=== PATIENT | male | born 1955 | race Caucasian/White ===

== ENCOUNTER 2017-02-06 19:13 | Inpatient (IN) | payer BC ==
[~2017-02-06] VITALS: Ht 180.3 cm; Wt 77.1 kg
--- NOTE | ~2017-02-06 | CNG ---
[facility] [place] [address] CYTO-NONGYN REPORT PROCEDURE Name: VAN MEDINA Room #: 423-1 DIS IN M.R.#: [id number] Admission: 02/06/17 Date of : 55 Discharge: 02/09/17 Report #: [id number] Path Case #: [id number] CYTOPATHOLOGY REPORT COLLECTION DATE: 02/09/2017 RECEIVED DATE: 02/09/2017 SUBMITTING PHYS: Dr. Oswald Devine OTHER PHYS: Dr. Norm Zhang CLINICAL HISTORY: Urinary Retention, Hematuria, Bladder spasms UTI; See also [id number] SPECIMEN(S) RECEIVED: A.Washing, Bladder * * * * * * * * * * * * FINAL DIAGNOSIS: A. Washing, Bladder: - No malignant cells identified. Reactive urothelial cells, red blood cells and inflammation identified. PATHOLOGIST: Jase Yi M.D. REPORT ELECTRONICALLY SIGNED BY: Jase Yi M.D. DATE/TIME: 02/12/2017 12:36 * * * * * * * * * * * * GROSS PATHOLOGY: A. Washing, Bladder: The specimen is submitted unfixed, labeled "Van Medina". Received by the Cytology Department is 95 mL of red fluid. One ThinPrep slide was prepared. (mm 02.09.2017) RUFFLING MACHINE OPERATOR(S): PRABHAKAR Ling([facility]) INITIAL CPT CODE(S): A; 14692 Professional services performed by [facility] at [facility] [address], [place] [address] Technical services performed by [facility] at [address] [place] [address]., [address], [place] [address]. [facility] [address] [place] [address], [facility] [address] [place] [address] PHONE: [phone] [facility] [address] [place] [address] CYTO-NONGYN REPORT PROCEDURE Name: VAN MEDINA Room #: 423-1 DIS IN M.R.#: [id number] Admission: 02/06/17 Date of : 55 Discharge: 02/09/17 Report #: [id number] Path Case #: [id number] DIRECTOR: Steven Hines M.D. * * * END OF REPORT * * *
--- NOTE | ~2017-02-06 | HC ---
[facility] [place] [address] CONSULTATION Name: GABICAITLYN VINES Room #: 407-P [facility] IN M.R.#: [id number] Admission: 02/06/17 Attend Phys: Oswald Devine DO Discharge: Date of : 55 Report #: [id number] THIS REPORT FOR: //name// CC: Norm Devine DATE OF SERVICE: 02/07/2017 REASON FOR CONSULTATION: Evaluate urinary tract infection, hematuria and C. difficile colitis. HISTORY OF PRESENT ILLNESS: The patient is a 61-year-old with rectal adenocarcinoma who has recently completed a course of chemotherapy and radiation in preparation for his tumor resection. 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 He does have underlying atrial fibrillation, history of DVT and PE and he has been anticoagulated on Coumadin. Last month, he was treated for urinary retention and required self-catheterization. He subsequently developed gross hematuria about 3 weeks ago. This was treated at [facility]. At that time, he was also diagnosed with C. difficile colitis. He was later dismissed from that hospitalization only to return again on 01/30/2017 with fever, chills, sweats, sepsis, outlet obstruction thought related to blood clots and again was diagnosed with C. difficile colitis. CT scan at that time showed evidence of distal proctocolitis. In retrospect hard to know how of much of this is radiation induced and how much of this is due to C. difficile. The remainder of his colon was unremarkable. He did grow acinetobacter from his urine culture, which was sensitive to quinolones. He was dismissed on ciprofloxacin, oral vancomycin and metronidazole. Subsequently, he returns now again with gross hematuria and has had a 3-way catheter placed. No fever, chills or sweats. No nausea or vomiting. He has had a soft stool with no mucus or blood reported. He has had no rashes or decubiti. REVIEW OF SYSTEMS: Otherwise, unremarkable. PAST MEDICAL HISTORY: Congestive heart failure, atrial fibrillation, [place], borderline diabetic, DVT, pulmonary embolus, urinary outlet obstruction, C. difficile colitis. ALLERGIES: None. MEDICATIONS: As noted on his MAR including the Coumadin when he first came in along with oral vancomycin, ciprofloxacin and metronidazole. These have been continued. PHYSICAL EXAMINATION: [address] [address] CONSULTATION Name: GABICAITLYN JASMYN Room #: [facility] IN M.R.#: [id number] Admission: 02/06/17 Attend Phys: Oswald Devine DO Discharge: Date of : 55 Report #: [id number] VITAL SIGNS: Afebrile, hemodynamically stable. GENERAL: He is alert and cooperative and pleasant, in no acute distress. HEENT: Unremarkable. CHEST: Clear. HEART: Regular, without murmur. ABDOMEN: Soft and nontender. No hepatosplenomegaly or mass. He had a 3-way catheter with grossly bloody urine. EXTREMITIES: Unremarkable. ANAL EXAMINATION: Not performed. LABORATORY STUDIES: Sodium 138, potassium 4.4, bicarbonate 17, creatinine 1.6, lactate 2. INR 1.6, hemoglobin 9.6, WBC 7.6, platelet count 254,000. Differential unremarkable. Urinalysis, many rbc's, rare WBCs, few bacteria. Urine culture, no growth to date. 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 C. difficile colitis versus radiation proctitis and tumor with C. difficile associated diarrhea. I suspect the latter in this situation. I would recommend discontinuation of the ciprofloxacin. His urine culture now is negative with a fairly unremarkable urinalysis. I will continue enteral vancomycin for the next several days until I get a better sense of his stool output. <ELECTRONICALLY SIGNED> By: Sohail Deras MD 02/08/17 1008 1221 0004 Sohail Deras MD /nt
--- NOTE | ~2017-02-06 | S ---
[facility] [place] [address] SURGICAL PATH RPT PROCEDURE Name: VAN MEDINA Room #: 423-1 DIS IN M.R.#: [id number] Admission: 02/06/17 Date of : 55 Discharge: 02/09/17 Report #: [id number] Path Case #: [id number] PATHOLOGY REPORT COLLECTION DATE: 02/08/2017 RECEIVED DATE: 02/09/2017 SUBMITTING PHYS: Dr. Mesfin Griffin OTHER PHYS: Dr. Norm Devine SPECIMEN(S) RECEIVED: A.Posterior bladder wall biopsy * * * * * * * * * * * * FINAL DIAGNOSIS: Urinary bladder, posterior wall, biopsy: - Partially denuded transitional epithelium without evidence of malignancy. - Submucosal congestion with diluted blood vessels. (ODALYS:florentino; d/t: 02/12/2017) PATHOLOGIST: Jase Yi M.D. REPORT ELECTRONICALLY SIGNED BY: Jase Yi M.D. DATE/TIME: 02/12/2017 13:50 * * * * * * * * * * * * GROSS PATHOLOGY: Received in formalin labeled "Van Medina, posterior bladder wall biopsy," are 2 segments of dark brown soft tissue measuring 0.3 x 0.3 x 0.2 cm in aggregate dimensions and measuring 0.3 cm each in maximum dimension. The specimen is submitted entirely in cassette A1. (KAH; 02/09/2017) CLINICAL HISTORY: Clot INITIAL CPT CODE(S): A; 15834 Professional services performed by [facility] at [facility] [address] [place] [address] Technical services performed by [facility] at [address] [place] [address]. [facility] [address] [place] [address] SURGICAL PATH RPT PROCEDURE Name: VAN MEDINA Room #: 423-1 DIS IN M.R.#: [id number] Admission: 02/06/17 Date of : 55 Discharge: 02/09/17 Report #: [id number] Path Case #: [id number] [facility] [address] [address] PHONE: [phone] DIRECTOR: Steven Hines M.D. * * * END OF REPORT * * *
--- NOTE | ~2017-02-06 | O ---
[facility] [place] [address] OPERATIVE REPORT Name: CAITLYN ASHLEY Room #: 407-P [facility] IN M.R.#: [id number] Admission: 02/06/17 Attend Phys: Oswald Devine DO Discharge: Date of : 55 Report #: [id number] THIS REPORT FOR: //name// CC: Norm Devine DATE OF SERVICE: 02/08/2017 PREOPERATIVE DIAGNOSES: Gross hematuria, urinary retention. POSTOPERATIVE DIAGNOSIS: Gross hematuria, urinary retention. PROCEDURE: Cystoscopy, clot evacuation, bladder biopsy, fulguration of bleeding prostatic vessels, Pickett catheter insertion. SURGEON: Mesfin Griffin MD LITERARY WRITER: None. ANESTHESIA: General with LMA. ESTIMATED BLOOD LOSS: Minimal. FLUIDS: See anesthesia flow sheet. SPECIMEN: Posterior wall bladder biopsy for permanent bladder wash for cytology. DRAINS: A 24-Malian 3-way Pickett with CBI. COMPLICATIONS: None. INDICATIONS: A 61-year-old gentleman with history of radiation and chemotherapy for rectal cancer on anticoagulation for history of AFib, DVT and pulmonary embolus. He had been seen by us previously for urinary retention, had been started on self-cath a few weeks ago. He was admitted 2 days ago for gross hematuria and urinary retention due to clots. Large 3-way Pickett catheter was placed. Some clot was irrigated free, but the patient had recurrent clot retention. Cystogram performed yesterday demonstrated multiple filling defects in the bladder, 2-3 cm in size consistent with clot. We discussed with the patient need for cystoscopy, clot evacuation, possible biopsies depending on what we found. Risks, benefits, alternatives discussed at length. Risks including bleeding, infection, bladder perforation, continued hematuria, need for catheterization, need for subsequent procedures as well as urethral stricture. The patient acknowledged that he understood these risks. He has [facility] [address] [place] [address] OPERATIVE REPORT Name: CAITLYN ASHLEY Room #: 407-P [facility] IN M.R.#: [id number] Admission: 02/06/17 Attend Phys: Oswald Devine DO Discharge: Date of : 55 Report #: [id number] pertinent questions, which were answered. He ultimately elected to proceed. PROCEDURE AND FINDINGS: The patient was identified in the preoperative holding area. He was marked and consented, transported to the cystoscopy suite where a general anesthetic was administered. He was positioned in the dorsal lithotomy position with all appropriate pressure points padded. He was prepped and draped in typical sterile fashion. A timeout was performed confirming correct patient and procedure. We began by inserting the rigid Olympus 22-Malian cystoscope through the urethra into the bladder. Urethra showed multiple areas of what appeared to be catheter trauma. The mucosa was largely intact, though prostate was notable for severe hyperplasia, mostly from lateral lobes, visual obstruction, minimal median lobe. Bladder had multiple large clots and was unable to visualize much of the bladder upon first entering. Using Randy syringe, bladder was irrigated, clear of clot, probably approximately 60 mL total of clot. The bladder was then clear enough for me to fully examine it. It was trabeculated with small cellules. Bilateral ureteral orifices were orthotopic in position. There were some areas of mild erythema and edema diffusely, but no obvious tumors or other lesions. I biopsied chain sales representative area posteriorly with a cold cup biopsy. This was sent for permanent pathology. This area was fulgurated with the Bugbee. There was no other obvious source of bleeding within the bladder. I did find some bleeding vessels on the left lateral lobe of the prostate at the level of the bladder neck. These were also fulgurated with the Bugbee electrode. Following this, urine was light pink color. No further clots were appreciated. Scope was removed. A 24-Malian 3-way Pickett catheter was reinserted through the urethra and into the bladder. Balloon was inflated with 30 mL of sterile water. Catheter irrigated well, started him on some gentle continuous bladder irrigation. Given findings, I put him back on Flomax, also started him on finasteride in an attempt to prevent future prostatic bleeding, likely attempt a voiding trial in the subsequent 24-48 hours. By: 1230 1249 Mesfin Griffin MD /nt
[~2017-02-06 19:13] MED LIST: ACETAMINOPHEN325 M1 PO; ADULT LOW DOSE81 MG PO; CARVEDILOL12.5 MG PO; COUMADIN 10MG T10 M1 PO; COUMADIN 5 MG TA5 M1 PO; COZAAR 50 MG TA50 M2 PO; DIABETA 5MG TABL5 MG PO; ENOXAPARIN100 MG/11 SUBQ; GLYBURIDE 2.52.5 M1 PO; LISINOPRIL20 MG PO; METFORMIN HCL500 MG PO; NOHOMEMEDICATIONS; SPIRONOLACTONE25 M3 PO
[2017-02-06 19:14] VITALS: BP 127/85
[2017-02-06] MEDS ORDERED: LOPERAMIDE 2 MG2 M1 PO (19:45)
[2017-02-06 19:46] LABS: URINE BILIRUBIN NEGATIVE (Negative); URINE BLOOD 3+ (Negative); URINE COLOR RED; URINE GLUCOSE-RANDOM* 1+ (Negative); URINE KETONES TRACE (Negative); URINE NITRITE POSITIVE (Negative); URINE PROTEIN (DIPSTICK) 3+ (Negative)
[2017-02-06] MEDS ORDERED: COMPAZINE10 M2 PO (19:46)
[2017-02-06] MEDS ORDERED: SILVADENE20 GM TP (19:47)
[2017-02-06] MEDS ORDERED: VANCOCIN 125 M125 M1 PO (19:48)
[2017-02-06 19:52] LABS: BACTERIA 1-9 Few /HPF (None Seen); CASTS None Seen /LPF (None Seen); CRYSTALS None Seen /LPF (None Seen); SQUAMOUS None Seen /LPF (0-3); URINE RBC >20 Many /HPF (0-2); URINE WBC 0-5 Rare /HPF (0-5)
[2017-02-06 19:55] LABS: HEMATOCRIT 32.9 % (42.0-52.0); MANUAL DIFF YES; MCH 30.1 pg (26.0-34.0); MCHC 33.4 g/dL (28.0-37.0); MCV 89.9 fL (80.0-100.0); PLATELET COUNT 262 thou/uL (150-400); RBC 3.66 mil/uL (4.50-6.00); RDW 22.1 % (10.5-14.5); WBC 9.3 thou/uL (4.0-11.0)
[2017-02-06 20:00] LABS: CALCIUM 8.3 mg/dL (8.5-10.1); CREATININE 1.7 mg/dL (0.7-1.3); POTASSIUM 4.2 mmol/L (3.5-5.1)
[2017-02-06 20:17] LABS: APTT 34.4 Seconds (24.5-32.8); INR 1.8; PROTIME 18.2 Seconds (9.3-11.4)
[2017-02-06 20:20] LABS: ABSOLUTE NEUTROPHILS 6.1 thou/uL (1.4-8.2); ANISOCYTOSIS 1+; ATYPICAL LYMPHS 1 %; TOTAL CELL COUNT 100
[2017-02-06 20:21] LABS: POLYCHROMASIA OCCASIONAL
[2017-02-06 21:40] VITALS: BP 101/70
[2017-02-06 22:00] VITALS: BP 86/63
[2017-02-07 04:00] VITALS: BP 145/97
[2017-02-07 04:08] LABS: HEMATOCRIT 28.3 % (42.0-52.0); HEMOGLOBIN 9.6 gm/dL (14.0-18.0); MCH 30.3 pg (26.0-34.0); MCV 89.1 fL (80.0-100.0); RBC 3.18 mil/uL (4.50-6.00); RDW 21.9 % (10.5-14.5); WBC 7.6 thou/uL (4.0-11.0)
[2017-02-07 04:17] LABS: CREATININE 1.6 mg/dL (0.7-1.3); POTASSIUM 4.4 mmol/L (3.5-5.1)
[2017-02-07 04:20] LABS: INR 1.6; PROTIME 16.5 Seconds (9.3-11.4)
[2017-02-07 08:23] VITALS: BP 128/86
[2017-02-07 16:05] LABS: HEMATOCRIT 24.7 % (42.0-52.0); HEMOGLOBIN 8.4 gm/dL (14.0-18.0); MCH 30.3 pg (26.0-34.0); MCV 89.2 fL (80.0-100.0); RBC 2.76 mil/uL (4.50-6.00); RDW 22.1 % (10.5-14.5); WBC 7.1 thou/uL (4.0-11.0)
[2017-02-07 19:49] VITALS: BP 107/72
[2017-02-08 02:11] LABS: GLYCOHEMOGLOBIN (HGB A1C) 5.5 % (4.8-5.6)
[2017-02-08 05:18] VITALS: BP 131/77
[2017-02-08 06:05] LABS: HEMOGLOBIN 7.5 gm/dL (14.0-18.0); MCH 30.8 pg (26.0-34.0); MCHC 33.9 g/dL (28.0-37.0); MCV 90.8 fL (80.0-100.0); PLATELET COUNT 187 thou/uL (150-400); RBC 2.43 mil/uL (4.50-6.00); WBC 4.7 thou/uL (4.0-11.0)
[2017-02-08 06:09] LABS: MANUAL DIFF YES
[2017-02-08 06:17] LABS: CALCIUM 7.7 mg/dL (8.5-10.1); CREATININE 1.2 mg/dL (0.7-1.3); POTASSIUM 4.6 mmol/L (3.5-5.1)
[2017-02-08 08:00] VITALS: BP 120/80
[2017-02-08 08:45] LABS: ABSOLUTE NEUTROPHILS 2.5 thou/uL (1.4-8.2); ANISOCYTOSIS 3+; PLATELET ESTIMATE NORMAL; POLYCHROMASIA 1+; SCHISTOCYTES 1+; TOTAL CELL COUNT 100
[2017-02-08 10:52] VITALS: BP 122/71
[2017-02-08 16:00] VITALS: BP 119/77
[2017-02-08 20:00] VITALS: BP 107/71
[2017-02-09 05:01] VITALS: BP 110/68
[2017-02-09 08:42] VITALS: BP 118/75
[2017-02-09] MEDS ORDERED: HYDROCODONE-APA1 TA1 PO (09:52)
[2017-02-09 13:28] VITALS: BP 118/75
[2017-02-09] MEDS ORDERED: RAPAFLO8 MG PO (14:19)
[2017-02-09 14:22] VITALS: BP 118/75
== END 2017-02-09 15:06 | disposition home or self-care (01) | DRG 654 ==
LOC: ER 19:13 → EROBS 20:48 → 4N 20:48 → 4E 02-08 17:45
PROVIDERS: Emergency Medicine; Family Medicine; Nurse Practitioner Family; Physician Assistant
PROC: 0T7B8DZ Dilation of Bladder with Intraluminal Device, Via Natural or Artificial Opening Endoscopic (ICD-10-PCS; principal; 2017-02-08)
PROC: 0TCB8ZZ Extirpation of Matter from Bladder, Via Natural or Artificial Opening Endoscopic (ICD-10-PCS; principal; 2017-02-08)
PROC: 0TBB8ZX Excision of Bladder, Via Natural or Artificial Opening Endoscopic, Diagnostic (ICD-10-PCS; principal; 2017-02-08)
PROC: 0V508ZZ Destruction of Prostate, Via Natural or Artificial Opening Endoscopic (ICD-10-PCS; principal; 2017-02-08)
DX: N30.41 Irradiation cystitis with hematuria (principal); N17.9 Acute kidney failure, unspecified; A04.7 Enterocolitis due to Clostridium difficile; C20 Malignant neoplasm of rectum; I13.0 Hypertensive heart and chronic kidney disease with heart failure and stage 1 through stage 4 chronic kidney disease, or unspecified chronic kidney disease; R30.0 Dysuria; E11.65 Type 2 diabetes mellitus with hyperglycemia; E11.22 Type 2 diabetes mellitus with diabetic chronic kidney disease; I95.9 Hypotension, unspecified; N32.9 Bladder disorder, unspecified; N18.9 Chronic kidney disease, unspecified; I48.91 Unspecified atrial fibrillation; I50.9 Heart failure, unspecified; Z79.82 Long term (current) use of aspirin; Z79.899 Other long term (current) drug therapy; Z79.01 Long term (current) use of anticoagulants; Z86.718 Personal history of other venous thrombosis and embolism; Z86.711 Personal history of pulmonary embolism; I25.2 Old myocardial infarction; Z95.5 Presence of coronary angioplasty implant and graft; Z87.891 Personal history of nicotine dependence
CPT/HCPCS: 10084; 10091; 50010; 50101; 50455; 56815; 62110; 62900; 70005

== ENCOUNTER → 2018-02-04 | Outpatient (CLI) | payer OTHER ==
[~2018-02-04] MED LIST changes: +COMPAZINE10 M2 PO; +HYDROCODONE-APA1 TA1 PO; +LOPERAMIDE 2 MG2 M1 PO; +RAPAFLO8 MG PO; +SILVADENE20 GM TP; +VANCOCIN 125 M125 M1 PO
--- NOTE | ~2018-02-04 | 2DMMODE ---
[facility] [place] [address] 2 D/M-MODE ECHOCARDIOGRAM Name: CAITLYN ASHLEY Room #: REG CL [facility]#: [id number] Admission: 02/04/18 Attend Phys: Judson Walters MD Discharge: Date of : 55 Date of Service: 02/04/18 1009 Report #: [id number] THIS REPORT FOR: //name// ADDENDUM APPROVED REPORT Study performed: 02/04/2018 08:56:27 EXAM: Comprehensive 2D, Doppler, and color-flow Echocardiogram Patient Location: Echo lab Status: routine BSA: 1.96 HR: 60 bpm BP: 130/84 mmHg Other Information Study Quality: Technically Difficult/Adequate Indications Diabetes Atrial Fibrillation Hypertension/HDD 2D Dimensions RVDd: 28.73 mm LVEF(%): 29.09 (>50%) IVSd: 10.78 (7-11mm) LVOT Diam: 23.33 (18-24mm) LVDd: 50.71 mm PWd: 11.66 (7-11mm) LVDs: 43.77 (25-40mm) Aortic Root: 48.68 mm IVC: 7.00 mm Castaneda's LVEF: 29.09 % Volumes Left Atrial Volume (Systole) Single Plane 4CH: 37.74 mL Single Plane 2CH: 62.79 mL LA ESV Index: 30.00 mL/m2 Aortic Valve AoV Peak Mati.: 1.09 m/s AO Peak Gr.: 4.77 mmHg LVOT Max P.37 mmHg LVOT Max V: 0.77 m/s YOCASTA Vmax: 3.01 cm2 AI Vmax: 4.67 m/s AI Randolph: 2.11 m/s2 [facility] [address] [place] [address] 2 D/M-MODE ECHOCARDIOGRAM Name: CAITLYN ASHLEY Room #: REG [facility]#: [id number] Admission: 02/04/18 Attend Phys: Judson Walters MD Discharge: Date of : 55 Date of Service: 02/04/18 1009 Report #: [id number] AI PHT: 642.40 ms Mitral Valve E/A Ratio: 0.7 MV Decel. Time: 277.20 ms MV E Max Mati.: 0.51 m/s MV A Mati.: 0.74 m/s MV PHT: 80.39 ms IVRT: 155.71 ms Pulmonary Valve PV Peak Mati.: 0.98 m/s PV Peak Gr.: 3.85 mmHg Pulmonary Vein P Vein S: 0.58 m/s P Vein A: 0.90 m/s P Vein D: 0.22 m/s P Vein A Dur.: 162.6 msec P Vein S/D Ratio: 2.64 Tricuspid Valve RAP Estimate: 5.00 mmHg Left Ventricle The left ventricle is normal size. Hypokinesis of the mid to basal inferior and lateral lyn. Mild concentric left ventricular hypertrophy. Left ventricular systolic function is moderately decreased. LVEF is 40%. Mild diastolic dysfunction is present (impaired relaxation pattern). Right Ventricle The right ventricle is normal size. The right ventricular systolic function is normal. Atria The left atrium size is normal. The right atrium size is normal. Aortic Valve Mild aortic valve sclerosis. Mild to moderate aortic regurgitation. There is no aortic valvular stenosis. Mitral Valve The mitral valve is normal in structure. Mild mitral regurgitation. No evidence of mitral valve stenosis. Tricuspid Valve The tricuspid valve is normal in structure. Trace tricuspid [facility] [address] [place] [address] 2 D/M-MODE ECHOCARDIOGRAM Name: GABICAITLYN JASMYN Room #: REG CL [facility].#: [id number] Admission: 02/04/18 Attend Phys: Judson Walters MD Discharge: Date of : 55 Date of Service: 02/04/18 1009 Report #: [id number] regurgitation. Unable to assess PA pressure. Pulmonic Valve The pulmonary valve is normal in structure. There is no pulmonic valvular regurgitation. Great Vessels Aortic root is dilated at 4.9 cm. Ascending aorta is not well visualized. IVC is normal in size and collapses >50% with inspiration. Pericardium There is no pericardial effusion. <Conclusion> The left ventricle is normal size. Mild concentric left ventricular hypertrophy. Left ventricular systolic function is moderately decreased. Mild diastolic dysfunction is present (impaired relaxation pattern). The right ventricle is normal size. The left atrium size is normal. Mild to moderate aortic regurgitation. Mild mitral regurgitation. Aortic root is dilated at 4.9 cm. <ELECTRONICALLY SIGNED> By: Judson Walters MD 02/04/18 1009 08 08 Judson Walters MD /INF
== END ==
LOC: CV 07:32
DX: I08.0 Rheumatic disorders of both mitral and aortic valves (principal); I10 Essential (primary) hypertension; I48.91 Unspecified atrial fibrillation; E11.9 Type 2 diabetes mellitus without complications

== ENCOUNTER → 2018-02-14 | Outpatient (CLI) | payer OTHER | LOC: NUC 07:32 | DX: I48.91 Unspecified atrial fibrillation (principal); I25.10 Atherosclerotic heart disease of native coronary artery without angina pectoris; I10 Essential (primary) hypertension; E78.5 Hyperlipidemia, unspecified ==

== ENCOUNTER → 2018-02-21 | Outpatient (CLI) | payer OTHER ==
[~2018-02-21] VITALS: Ht 177.8 cm; Wt 78.0 kg
[~2018-02-21] MED LIST changes: +JANTOVEN5 MG PO; +JANTOVEN7.5 MG PO; +PROTONIX40 M1 PO
--- NOTE | ~2018-02-21 | CATHLAB ---
[facility] [address] [place] [address] INVASIVE PROCEDURE REPORT Name: CAITLYN ASHLEY Room #: REG [facility]#: [id number] Admission: 02/21/18 Attend Phys: Judson Walters MD Discharge: Date of : 55 Date of Service: 02/21/18 1322 Report #: [id number] THIS REPORT FOR: //name// APPROVED REPORT Study performed: 02/21/2018 09:25:39 Patient Details Patient Status: Out-Patient Room #: The patient is a 62 year-old male Event Personnel Judson Walters [employer] Fire Fighter Specialist, Elena Zapata RN RN, Norm [place], Christine RTIsai Monitor, Tyesha Eldridge Monitor Procedures Performed Left Heart Cath w/or w/o Coronaries [id number] [facility] Indication Dyspnea, CardiomyopathyPositive stress test, Chest pain Risk Factors Hypercholesterolemia, Hypertension Procedure Narrative The Right Groin^ was infiltrated with 1% Lidocaine subcutaneous anesthesia. A PINNACLE 4FR Sheath #[id number] sheath was inserted into the RFA^. Coronary angiography was performed using coronary diagnostic catheters. The right coronary system was accessed and visualized with a JR4 catheter. The left coronary system was accessed and visualized with a JL4 catheter. The left ventricle was accessed and visualized with a PIGTAIL catheter. Left ventricular/Aortic Valve gradient assessed via catheter pullback. Hemostasis was obtained with manual pressure following sheath removal without any complications. The patient tolerated the procedure well and there were no complications associated with the procedure. There was no hematoma. Intraoperative Conscious Sedation Sedation start time: 9.56 Case end Time: 10.10 Fentanyl 25 mcg Versed 2 mg Fluoro Time: 3.[address] [facility] [place] [address] [address] [place] [address] INVASIVE PROCEDURE REPORT Name: CAITLYN ASHLEY Room #: REG CL [facility]#: [id number] Admission: 02/21/18 Attend Phys: Judson Walters MD Discharge: Date of : 55 Date of Service: 02/21/18 1322 Report #: [id number] Dose: DAP 2247.20 cGycm2 276 mGy Contrast Type and Amount: Visipaque 40 ml Coronary Angiography The patient's coronary anatomy is co- dominant. Diagnostic Cath Left Main Patent vessel, with no flow-limiting lesions. LAD There are ectatic areas in the proximal LAD and proximal first diagonal artery. There is mild disease in the proximal segment of the LAD just after the ectatic area, less than 20%. The mid and distal segments of the LAD is patent with no flow-limiting lesions. Diagonal 1 Ectatic area in the proximal segment. Circumflex Codominant vessel with ectatic segment in the proximal region. Supplies 3 obtuse marginal arteries. OM1 Patent vessel, with no flow-limiting lesions. OM2 Patent vessel, with no flow-limiting lesions. OM3 Patent vessel, with no flow-limiting lesions. Right Coronary Ectatic areas in the proximal and mid segments of the RCA. There may be some mild disease in the mid segment, less than 20%. R PDA Patent vessel, with no flow-limiting lesions. Left Ventriculography Left Ventriculography was not performed. An LVEDP was checked and there is no gradient across the outflow tract. Hemodynamics The aortic pressure is 118/67 mmHg with a mean of 78 mmHg. The left ventricular pressure is 115/-1 mmHg with a mean of mmHg. The left ventricular end diastolic pressure is 4 mmHg. Conclusion 1. Nonischemic cardiomyopathy. 2. Mild disease in the LAD and RCA. 3. Ectatic segments in all 3 major epicardial vessels as described above. 4. Recommend medical therapy. <ELECTRONICALLY SIGNED> By: Judson Walters MD 02/21/18 1322 132 21 Judson Walters MD /INF
--- NOTE | ~2018-02-21 | EKG ---
[address] [address] ELECTROCARDIOGRAM REPORT Name: [facility]ABICAITLYN [id number] Admission: 02/21/18 Attend Phys: Judson Walters MD Discharge: Date of : 55 Report #: [id number] THIS REPORT FOR: //name// [facility] Test Date: 2018-02-21 Test Time: 08:30:08 Pat Name: CAITLYN ASHLEY Department: Room: Gender: M Gas Station Manager: : 1955 Requested By: Judson Walters Order Number: [id number] MD: Juan Al Measurements Intervals [place] Rate: 67 P: 19 SC: 216 QRS: -26 QRSD: 99 T: 80 QT: 374 QTc: 395 Interpretive Statements Sinus rhythm Inferior infarct, old Septal infarct, old Nonspecific T wave abnormality Compared to ECG 09/10/2012 05:34:38 Sinus tachycardia no longer present Electronically Signed On 02-21-2018 8:52:21 CDT by Juan Al [email or web address] <ELECTRONICALLY SIGNED> By: Juan Al MD, [facility] 02/21/1852 9 9 Juan Al MD, FACC /EPI
[2018-02-21 08:11] VITALS: BP 128/81
[2018-02-21 08:27] LABS: HEMOGLOBIN 12.4 gm/dL (14.0-18.0); MCH 27.6 pg (26.0-34.0); MCHC 33.5 g/dL (28.0-37.0); MCV 82.2 fL (80.0-100.0); RBC 4.5 mil/uL (4.50-6.00); RDW 16.8 % (10.5-14.5); WBC 9.4 thou/uL (4.0-11.0)
[2018-02-21 08:33] LABS: CALCIUM 8.6 mg/dL (8.5-10.1); CREATININE 1.8 mg/dL (0.7-1.3); POTASSIUM 4.5 mmol/L (3.5-5.1)
[2018-02-21 08:34] LABS: PROTIME 10.3 Seconds (9.3-11.4)
== END | disposition home or self-care (01) ==
LOC: CATH 07:29
PROVIDERS: Internal Medicine Cardiovascular Disease
DX: I25.10 Atherosclerotic heart disease of native coronary artery without angina pectoris (principal); I42.9 Cardiomyopathy, unspecified; I11.0 Hypertensive heart disease with heart failure; I50.9 Heart failure, unspecified; E11.9 Type 2 diabetes mellitus without complications; E78.00 Pure hypercholesterolemia, unspecified; N28.9 Disorder of kidney and ureter, unspecified; K21.9 Gastro-esophageal reflux disease without esophagitis; Z87.891 Personal history of nicotine dependence; Z86.718 Personal history of other venous thrombosis and embolism; Z95.5 Presence of coronary angioplasty implant and graft; Z82.49 Family history of ischemic heart disease and other diseases of the circulatory system; Z85.048 Personal history of other malignant neoplasm of rectum, rectosigmoid junction, and anus; Z79.01 Long term (current) use of anticoagulants; Z79.899 Other long term (current) drug therapy